=== PATIENT | male | born 1985 | race Caucasian/White ===

== ENCOUNTER 2017-10-23 20:20 | Emergency (ER) | payer MEDICAID ==
[~2017-10-23] VITALS: Ht 167.6 cm; Wt 99.2 kg
[~2017-10-23 20:20] MED LIST: HYDR-565 PO
[2017-10-23 20:32] VITALS: BP 165/97
== END 2017-10-24 01:02 | disposition left against medical advice (07) ==
LOC: ER 20:21
DX: R21 Rash and other nonspecific skin eruption (principal); Z53.21 Procedure and treatment not carried out due to patient leaving prior to being seen by health care provider